=== PATIENT | male | born 1980 | race Caucasian/White ===

== ENCOUNTER 2025-04-26 07:02 | Day surgery (SDC) | payer OTHER ==
[2025-04-26] MEDS: Lactated Ringers 1,000 ML IV SCH (07:30)
[2025-04-26] MEDS ORDERED: Midazolam 1 MG/ML 2 ML SDV ONE (08:15)
[2025-04-26] MEDS ORDERED: Propofol 200 MG/20 ML SDV ONE ×2 (08:15→09:34)
[2025-04-26] MEDS ORDERED: fentaNYL 50 MCG/ML SDV ONE (08:15)
== END 2025-04-26 10:35 | disposition home or self-care (01) ==
LOC: JP.SDS 07:02
PROVIDERS: ATTEND Family Medicine
DX: Z12.11 Encounter for screening for malignant neoplasm of colon (principal); D12.3 Benign neoplasm of transverse colon; D12.4 Benign neoplasm of descending colon; D12.5 Benign neoplasm of sigmoid colon; K63.5 Polyp of colon
CPT/HCPCS: 45380; 45385; J2250; J2704; J3010; J7120; 00811-QZ; 88305